=== PATIENT | male | born 1945 | race Caucasian/White ===

== ENCOUNTER 2022-06-30 10:52 | Outpatient (CLI) | payer MEDICARE, BC, SELFPAY ==
[2022-06-30 13:29] LABS: Chloride* 100 mmol/L (96-114); Potassium* 4.3 mmol/L (3.6-5.1); Sodium* 137 mmol/L (135-149)
[2022-06-30 13:32] LABS: Blood Urea Nitrogen* 15 mg/dL (7-30); Carbon Dioxide* 29 mmol/L (20-32); Cholesterol* 128 mg/dL (90-199); Creatinine* 0.9 mg/dL (0.5-1.5); Estimated Glomerular Filt Rate 89 ml/min; Glucose* 103 mg/dL (60-115)
[2022-06-30 13:33] LABS: Calcium* 9.6 mg/dL (8.4-10.6); HDL Cholesterol* 47 mg/dL (>=40); LDL Cholesterol Calculated 68 mg/dL (<100); Triglycerides* 65 mg/dL (40-149)
== END 2022-06-30 10:53 | disposition home or self-care (01) ==
PROVIDERS: PCP Internal Medicine; Visit Provider Internal Medicine
DX: E78.5 Hyperlipidemia, unspecified (principal); R73.03 Prediabetes
CPT/HCPCS: 80048; 80061

== ENCOUNTER 2022-10-21 09:15 | Outpatient (RCR) | payer MEDICARE, BC, SELFPAY ==
--- NOTE | 2022-08-18 18:47 | PT.OPEX ---
PT [place] Outpatient Eval PT [facility] Outpatient Eval Start: 08/18/22 12:16 Freq: Status: Active Protocol: Document 08/18/22 12:17 ENM (Rec: 08/18/22 14:35 ENM [id number]) E-signed By Neetu Stout DPT Physical Therapy Outpatient Evaluation Insurance Information Recert Due Date 11/10/22 Insurance Name Medicare B Medical Diagnosis other abnormalities of gait and mobility Treating Diagnosis impaired gait, decreased LE strength, impaired balance Referring MD Fitzgerald Subjective Subjective Patient presents to PT for balance impairments that have been present for years. He fell a couple of months ago when he wore a heavy backpack walking outside and notes that his hamstrings just got tired . He has fallen a few other times which he attributes to his dehydration or lack of electrolytes. His main form of activity is walking, uses hiking poles while performing. With getting out of bed or out of a chair patient starts off a little unstable. With darkness at night he notices more challenges with stability . Had been diagnosed with olivary degeneration, which spouse reports has improved some. Patient doesn't have to stairs much anymore but they were challenging to do in their old house. He does have a history of fainting with vasovagal episodes in the past . With standing for >5 mins he will feel faint, but it is better with walking. Patient denies lightheadedness and dizziness unless he is fatigued. Found to have executive function decline with testing. PMHx: History of previous TIA (12/23), ischemic stroke 2015, PFO Current Work Status Retired Precautions Treatment Precautions/Contraindications hx of vasovagal episodes Alyssa is the patients spouse Objective Other/Pertinent Objective ROM hip flexion, IR, ER WFL strength: knee extensors 4/5 B hip flexors L 4/5 R 4-/5 ankle DF 4/5 gait/balance: Patient ambulating with wide VIDYA, normal pace, even steps. Instability noted with lateral head turns during gait. No instability with vertical head turns, change in pace or quick stop 5x STS 16.44s, medium fatigue no arm use cues for getting fully upright normal VIDYA EO no sway normal VIDYA EC minimal sway narrow VIDYA EO minimal sway narrow VIDYA EC mild-mod sway while performing tandem stance able to hold 1- 2s before LOB, modified tandem mild way special tests: TUG 14.12s with wide VIDYA throughout Functional Test Performed & Score TUG 14.12s with wide VIDYA throughout 5x STS 16.44s, medium fatigue no arm use cues for getting fully upright Assessment Assessment/Impression Patient is a 76 year old male presenting with long history of balance impairments. He has had multiple falls in the past with the most difficulty with instability during ambulation, transitional movements like STS and navigating his environment at night. He has a history for strokes, vasovagal episodes, TIA, PFO and hypertrophic olivary degeneration. His main goal is to improve strength and balance Upon assessment patient displays impairments in balance with narrow VIDYA EC, tandem stance, TUG, and dynamic head turns during ambulation. Most notable gait impairment is wide VIDYA to maintain stability throughout gait cycle. 5x STS score of 16 .44s which is below age matched norms indicating decreased LE functional strength and endurance. Patient would greatly benefit from skilled PT to address impairments stated above in order to perform functional and recreational mobility with improved balance/stability and decrease risk for future falls. Primary Functional Limitations walking, stairs Plan of Care Rehabilitation Potential Good Physical Therapy Goals In 8-10 visits 1. Patient will be IND with HEP and self management of symptoms 2. Patient will be able to hold tandem stance 10s or more with minimal instability to demonstrate improvements in balance/stability 3. Patient will improve TUG scores from 14s to 13s or less to displays a decreased risk of falling 4. Patient will be able to walk in bedroom at night with reported minimal instability 4 /7 days of the week for improved safety with navigating home environment 5. Patient will improve 5x STS from 16s to 13s (MDC 3) to demonstrate improvements in LE functional strength and endurance Coordination/Communication With Referral Source Treatment Plan/Direct Interventions Gait Training,Joint Mobilization,Manual Therapy, Neuromuscular Re-ed,Self-Care/ Home Management,Therapeutic Activities,Therapeutic Exercises Frequency/Duration 1x a week for 8 weeks, as needed for 2-3 visits Patient Will Be Discharged From Therapy Completion of LTG(s), Independent w/HEP Evaluation Billing Untimed Code Treatment Minutes 30 Complexity Moderate Certification Information Initial Certification Date 08/18/22 Ending Certification Date 11/10/22 Provider Signature Shows Agreement With POC & Medical Necessity Physician Signature & Date Requested Please Sign/Date Here Physician Comment/Change : Physician NPI Number #
== END 2022-10-26 16:49 | disposition home or self-care (01) ==
PROVIDERS: PCP Internal Medicine; Visit Provider Internal Medicine
DX: R26.89 Other abnormalities of gait and mobility (principal); Z51.89 Encounter for other specified aftercare
CPT/HCPCS: 97110; 97112; 97162; 97530

== ENCOUNTER 2023-03-04 14:44 | Emergency (ER) | payer MEDICARE, BC, SELFPAY ==
[2023-03-04] VITALS (17 sets, daily range): BP systolic 118–150; BP diastolic 68–98; PULSE 40–76; RESP 16–18; TEMP 36.4–37.1; O2SAT 91–100; BMI 26.8
--- NOTE | 2023-03-04 16:15 | ED.GENADULT ---
HPI - General Adult General Time Seen by Provider: 16:15 Date Seen: 03/04/23 Chief complaint: Dizziness/Vertigo Stated complaint: Low heartrate yesterday, slightly short of breath Time Seen by Provider: 03/04/23 16:14 Source: patient, family, RN notes reviewed and old records reviewed Mode of arrival: ambulatory Limitations: no limitations History of Present Illness HPI narrative: 77-year-old male with history of CVA related to what sounds like a VSD or ASD which has since been repaired, presents today with exertion lightheadedness as well as low heart rate. Patient notes for the last week or so when he goes outside to do his usual walking he gets lightheaded. When he rests this gets better. He has no associated chest pain or increased shortness of breath. Today his what were innumerable low heart rate and so he came to the emergency department. Denies nausea, vomiting, diarrhea. Denies urinary symptoms. No lower extremity swelling. Related Data Home Medications Medication Instructions Recorded Confirmed aspirin 81 mg capsule 81 mg PO QDAY 06/30/22 10/27/22 coenzyme Q10 10 mg capsule (Co 10 mg PO ONCE 06/30/22 10/27/22 Q-10) multivitamin 2 tab PO QAM 06/30/22 10/27/22 triamcinolone acetonide 0.1 % 1 applic topical PRN 06/30/22 10/27/22 topical ointment cod liver oil 1 cap PO QDAY 09/01/22 10/27/22 Previous Rx's Medication Instructions Recorded gabapentin 300 mg capsule 300 mg PO QHS #90 caps 08/03/22 atorvastatin 20 mg tablet 10 mg (1/2 x 20 mg) PO QDAY #45 02/02/23 tabs Allergies Allergy/AdvReac Type Severity Reaction Status Date / Time omeprazole Allergy Unknown Rash Verified 03/04/23 14:59 Penicillins Allergy Unknown Rash Verified 03/04/23 14:59 Review of Systems Status of ROS: Reports: 10 or more systems reviewed and unremarkable except as noted in History and below [facility] Surgical History (Updated 10/27/22 @ 10:40 by Sarah Fitzgerald MD) History of squamous cell carcinoma ?Z85.89 - Personal history of malignant neoplasm of other organs and systems (ICD-10) History of tonsillectomy and adenoidectomy ?Z90.89 - Acquired absence of other organs (ICD-10) History of mandibular surgery (2015) ?Z98.890 - Other specified postprocedural states (ICD-10) History of amputation of finger ?Z89.029 - Acquired absence of unspecified finger(s) (ICD-10) History of phacoemulsification of cataract of both eyes with intraocular lens implantation ?Z98.41 - Cataract extraction status, right eye (ICD-10) ?Z98.42 - Cataract extraction status, left eye (ICD-10) ?Z96.1 - Presence of intraocular lens (ICD-10) History of inguinal hernia repair ?Z98.890 - Other specified postprocedural states (ICD-10) ?Z87.19 - Personal history of other diseases of the digestive system (ICD-10) History of ventral hernia repair (2018) ?Z98.890 - Other specified postprocedural states (ICD-10) ?Z87.19 - Personal history of other diseases of the digestive system (ICD-10) PFO (patent foramen ovale) (2014) ?Q21.12 - Patent foramen ovale (ICD-10) Family History (Updated 06/26/22 @ 15:39 by Jael El) Mother Coronary artery disease High blood pressure Stroke Father Leukemia Lung cancer Sister Depression Liver disease Family history of breast cancer High blood pressure Brother Asthma Coronary artery disease Maternal Grandmother Diabetes Paternal Grandmother Diabetes Uncle Coronary artery disease Social History Smoking Status: Never smoker Do you use any of these nicotine containing products: None Second hand tobacco smoke exposure: No How often do you have a drink containing alcohol: never AUDIT-C Alcohol total score: 0 Non-prescribed substance use: denies use Little interest or pleasure in doing things: not at all Feeling down, depressed, or hopeless: not at all Exam Narrative: Exam Narrative: General: Well-developed and well-nourished, no acute distress Head: Atraumatic and normocephalic Eyes: Pupils are equal reactive, extraocular motions intact, conjunctiva clear ENT: External nose and ears are normal, posterior pharynx without erythema or exudate Neck: No midline cervical tenderness, full spontaneous range of motion the neck, trachea midline, no adenopathy Heart: Regular rate and rhythm no murmurs or thrills Lungs: Clear to auscultation bilaterally without wheezes or crackles Abdomen: Soft, nontender, nondistended with active bowel sounds Musculoskeletal: No tenderness, deformity, or edema Neurologic: Awake, alert, and oriented x3, no gross focal neurologic deficits, cranial nerves intact as tested Psych: Mood and affect are appropriate Skin: No rashes Const: Vital Signs, click to edit/add: Vital Signs - 24 hr 03/04/23 15:00 03/04/23 16:43 03/04/23 16:46 Temperature 98.8 F Pulse Rate 42 L 40 L Pulse Rate [Left P ulse Oximeter] 54 L Respiratory Rate 16 Blood Pressure 131/73 Blood Pressure [Ri ght Upper Arm] 122/75 Pulse Oximetry 94 94 91 Oxygen Delivery Me thod Room Air 03/04/23 16:47 03/04/23 17:00 03/04/23 17:02 Temperature Pulse Rate 40 L 42 L Pulse Rate [Left P ulse Oximeter] Respiratory Rate Blood Pressure 123/71 Blood Pressure [Ri ght Upper Arm] Pulse Oximetry 94 93 94 Oxygen Delivery Me thod 03/04/23 17:16 03/04/23 17:30 03/04/23 17:32 Temperature Pulse Rate 51 L 40 L Pulse Rate [Left P ulse Oximeter] Respiratory Rate Blood Pressure 118/68 131/92 H Blood Pressure [Ri ght Upper Arm] Pulse Oximetry 93 93 94 Oxygen Delivery Me thod 03/04/23 17:47 03/04/23 18:00 03/04/23 18:02 Temperature Pulse Rate 55 L 42 L 45 L Pulse Rate [Left P ulse Oximeter] Respiratory Rate Blood Pressure 142/98 H 150/81 H Blood Pressure [Ri ght Upper Arm] Pulse Oximetry 95 94 95 Oxygen Delivery Me thod Course Course Hospital Course: Patient seen examined, prior records reviewed. Patient presents today with exertion lightheadedness and his watched 80 had a low heart rate. Did review the health chanel from patient's watch, heart rate down to 38 today but has also had prior heart rates in the low 40s over the last couple of months. He says that his low heart rate that was recorded was not associated with activity or lightheadedness. Labs ordered, if labs are reassuring and telemetry monitoring in the emergency department does not show any dysrhythmia, patient is stable for discharge but would benefit from having Zio patch done. Reevaluation(s) Time of Reevaluation #1: 17:33 Reevaluation #1: Labs independently interpreted by me with normal CBC, reassuring basic panel, normal magnesium, negative troponin. BNP 1510. I reviewed telemetry strips in the emergency department today which show predominant pattern of bigeminy with a rate of 86, occasional sinus in the 70s. Concerned that this bigeminal rhythm may be giving patient episodes of lightheadedness with activity and that he may need further evaluation and consideration for pacemaker. Will discuss with cardiology, [facility] contacted. Time of Reevaluation #2: 17:52 Reevaluation #2: Care discussed with cardiology ([facility]) recommends transfer for EP evaluation and monitoring. Updated patient with diagnosis and plan. He had his prior PFO repair at [place] and I did call them but they have no beds available on full divert. Vital Signs Vital signs: Initial Vital Signs Temperature 98.8 F 03/04/23 15:00 Temperature Source Temporal Artery Scan 03/04/23 15:00 Pulse Rate 54 L 03/04/23 15:00 Pulse Rhythm Regular 03/04/23 15:00 Pulse Strength 3+ Normal 03/04/23 15:00 Respiratory Rate 16 03/04/23 15:00 Blood Pressure 122/75 03/04/23 15:00 Blood Pressure Mean 90 03/04/23 15:00 Blood Pressure Position Sitting 03/04/23 15:00 Pulse Oximetry 94 03/04/23 15:00 Oxygen Delivery Method Room Air 03/04/23 15:00 Vital Signs Temperature 98.8 F 03/04/23 15:00 Pulse Rate 54 L 03/04/23 15:00 Respiratory Rate 16 03/04/23 15:00 Blood Pressure 122/75 03/04/23 15:00 Pulse Oximetry 94 03/04/23 15:00 Oxygen Delivery Method Room Air 03/04/23 15:00 Temperature 98.8 F 03/04/23 15:00 Pulse Rate 45 L 03/04/23 18:02 Respiratory Rate 16 03/04/23 15:00 Blood Pressure 150/81 H 03/04/23 18:02 Pulse Oximetry 95 03/04/23 18:02 Oxygen Delivery Method Room Air 03/04/23 15:00 Medical Decision Making Medical Records Medical records reviewed: Yes I reviewed the patient's medical records Lab Data Lab results reviewed: Yes I reviewed the patient's lab results Labs: Lab Results 03/04/23 03/04/23 Range/Units 16:26 16:42 WBC 7.17 (4.50-11.00) K/uL RBC 4.71 (4.30-5.90) m/uL Hgb 14.9 (13.5-17.5) gm/dL Hct 44.8 (37.0-53.0) % MCV 95 (80-100) fL MCH 32 (26-34) pg MCHC 33 (32-36) gm/dL RDW Coeff of Evelina 12.8 (11.5-15.5) % Plt Count 148 (140-440) K/uL Neut % (Auto) 56.6 (42.0-72.0) % Lymph % (Auto) 31.8 (20-44) % [place] % (Auto) 8.8 (0.0-11.0) % Eos % (Auto) 1.8 (0.0-7.0) % Baso % (Auto) 0.7 (0.0-3.0) % Neut # (Auto) 4.06 (1.7-7.0) K/uL Lymph # (Auto) 2.28 (0.90-2.90) K/uL [place] # (Auto) 0.60 (0.00-0.90) K/UL Eos # (Auto) 0.13 (0.00-0.50) K/uL Baso # (Auto) 0.05 (0.00-0.30) K/uL Sodium 134 L (135-149) mmol/L Potassium 3.6 (3.6-5.1) mmol/L Chloride 100 (96-114) mmol/L Carbon Dioxide 29 (20-32) mmol/L BUN 19 (7-30) mg/dL Creatinine 1.2 (0.5-1.5) mg/dL Estimated Creat Clear 51.55 Estimated GFR 62 ml/min Glucose 87 (60-115) mg/dL Calcium 8.9 (8.4-10.6) mg/dL Magnesium 2.1 (1.5-2.6) mg/dL NT-Pro-B Natriuret Pep 1560 pg/mL Urine Color Yellow (Yellow) Urine Appearance Clear (Clear) Urine pH 5.5 (5.0-8.5) Ur Specific [place] <= 1.005 (1.000-1.030) Urine Protein Negative (Negative) Urine Glucose (UA) Negative (Negative) Urine Ketones Negative (Negative) Urine Blood Trace-intact A (Negative) Urine Nitrite Negative (Negative) Urine Bilirubin Negative (Negative) Urine Urobilinogen 0.2 (0.2-1.0) Ur Leukocyte Esterase Negative (Negative) Urine RBC 0-2 (0-2) Urine WBC 0-2 (0-5) Ur Squamous Epith Cells Few (None-Few) Urine Bacteria None (None) POC Troponin I 0.00 L (0.01-0.04) ng/ml ECG Data Attestation: I personally reviewed and interpreted this ECG as follows: Prior ECG tracings: not available for review Interpretation: Performed at 3:34 p.m. demonstrates sinus rhythm with frequent PVCs in a bigeminal pattern, nonspecific ST changes, normal axis, QTC 435. No prior for comparison. Discharge Plan Discharge Clinical Impression: Bigeminal rhythm, Near syncope Patient Disposition: Xfer [facility] Discharge Location: [facility] Condition: Stable Prescriptions: No Action triamcinolone acetonide 0.1 % ointment 1 applic topical PRN Patient Comments: APPLY TO ECZEMA TWO TIMES A DAY NEEDED coenzyme Q10 [Co Q-10] 10 mg capsule 10 mg PO ONCE multivitamin Tablet 2 tab PO QAM aspirin 81 mg capsule 81 mg PO QDAY gabapentin 300 mg capsule 300 mg PO QHS Qty: 90 3RF cod liver oil Capsule 1 cap PO QDAY atorvastatin 20 mg tablet 10 mg PO QDAY Qty: 45 1RF Stand Alone Forms: MyHealth Info Instructions
--- NOTE | 2023-03-04 16:19 | CRLHL7_ITS ---
For Patients: As a result of the Century Cures Act, medical imaging exams and procedure reports are released immediately into your electronic medical record. You may view this report before your referring provider. If you have questions, please contact your health care provider. Indication: Palpitations Technique: Chest 1 view Comparison: None Findings/Impression: Cardiovascular and mediastinum: Borderline heart size with mild aortic tortuosity. Lungs and pleural space: Lungs are clear. No sign of infiltrate or mass. No sign of pleural effusion. No pneumothorax. Bones and soft tissues: No acute findings. Dictated by Armaan Jenkins MD @ 03/04/2023 5:24:47 PM (Electronically Signed)
[2023-03-04 16:35] LABS: Appearance Urine Clear (Clear); Bilirubin Urine Negative (Negative); Blood Urine Trace-intact (Negative); Color Urine Yellow (Yellow); Glucose Urine Negative (Negative); Ketones Urine Negative (Negative); Leukocyte Esterase Urine Negative (Negative); Nitrite Urine Negative (Negative); Protein Urine Negative (Negative); Specific Gravity Urine <= 1.005 (1.000-1.030); Urobilinogen Urine 0.2 (0.2-1.0); pH Urine 5.5 (5.0-8.5)
[2023-03-04] MEDS: 0.9 % SODIUM CHLORIDE 1000 ml 1,000 ML IV (16:45)
[2023-03-04 16:47] LABS: Basophils Absolute Auto 0.05 K/uL (0.00-0.30); Basophils Percent Auto 0.7 % (0.0-3.0); Eosinophils Absolute Auto 0.13 K/uL (0.00-0.50); Eosinophils Percent Auto 1.8 % (0.0-7.0); Hematocrit 44.8 % (37.0-53.0); Hemoglobin* 14.9 gm/dL (13.5-17.5); Immature Granulocytes Abs Auto 0.02 K/uL (0.00-0.30); Immature Granulocytes Pct Auto 0.3 %; Lymphocytes Absolute Auto 2.28 K/uL (0.90-2.90); Lymphocytes Percent Auto 31.8 % (20-44); Mean Corpuscular HGB Conc 33 gm/dL (32-36); Mean Corpuscular Hemoglobin 32 pg (26-34); Mean Corpuscular Volume 95 fL (80-100); Monocytes Percent Auto 8.8 % (0.0-11.0); Neutrophils Absolute Auto 4.06 K/uL (1.7-7.0); Neutrophils Percent Auto 56.6 % (42.0-72.0); Platelet Count* 148 K/uL (140-440); RDW Coefficient of Variation % 12.8 % (11.5-15.5); Red Blood Count 4.71 m/uL (4.30-5.90); Slide Review Reflex No; White Blood Count* 7.17 K/uL (4.50-11.00)
[2023-03-04 16:56] LABS: RBC Urine 0-2 (0-2); Squamous Epithelial Cell Urine Few (None-Few); WBC Urine 0-2 (0-5)
[2023-03-04 16:58] LABS: Chloride* 100 mmol/L (96-114)
[2023-03-04 16:59] LABS: Potassium* 3.6 mmol/L (3.6-5.1); Sodium* 134 mmol/L (135-149)
[2023-03-04 17:01] LABS: Creatinine* 1.2 mg/dL (0.5-1.5); Est. Creatinine Clearance* 51.55; Estimated Glomerular Filt Rate 62 ml/min
[2023-03-04 17:02] LABS: Blood Urea Nitrogen* 19 mg/dL (7-30); Calcium* 8.9 mg/dL (8.4-10.6); Carbon Dioxide* 29 mmol/L (20-32); Glucose* 87 mg/dL (60-115); Magnesium* 2.1 mg/dL (1.5-2.6)
[2023-03-04 17:16] LABS: NT Pro B Type NatriureticPept* 1560 pg/mL
--- NOTE | 2023-03-04 19:38 | ED.NURSE ---
Rounded on patient. He reports feeling well. He is playing cards with his at bedside. Denies lightheadedness or dizziness currently. Will continue to monitor.
--- NOTE | 2023-03-04 20:36 | ED.NURSE ---
Report to MARYAM Maria at [facility] [place]. Patient going to room H5082. Ok to call for transport. Call [phone] once patient has left.
--- NOTE | 2023-03-04 20:49 | ED.NURSE ---
Transport called. ETA for transport 20-25 minutes.
--- NOTE | 2023-03-04 21:15 | ED.NURSE ---
Patient transport to [facility]. Patient sent with PCS form, face sheet, transfer consent, ED transfer report, MD note, EKG and imaging results. IV left in place for transport. [facility] updated with transport.
== END 2023-03-04 21:23 | disposition short-term general hospital (02) ==
PROVIDERS: Emergency Provider Family Medicine; PCP Internal Medicine
DX: R00.8 Other abnormalities of heart beat (principal); R55 Syncope and collapse
CPT/HCPCS: 36415; 71045; 80048; 81001; 83735; 83880; 84484; 85025; 93005; 96360; 99285; J7030

== ENCOUNTER 2023-03-04 21:12 | Outpatient (CLI) | payer MEDICARE, BC, SELFPAY | END 2023-03-04 21:13 | disposition home or self-care (01) | LOC: AMB 03-05 07:33 | PROVIDERS: PCP Internal Medicine; Visit Provider Family Medicine | DX: I49.9 Cardiac arrhythmia, unspecified (principal) | CPT/HCPCS: A0425; A0428 ==

== ENCOUNTER 2023-04-02 09:46 | Outpatient (CLI) | payer MEDICARE, BC, SELFPAY | END 2023-04-02 09:47 | disposition home or self-care (01) | LOC: RAD 09:46 | PROVIDERS: PCP Internal Medicine; Visit Provider Internal Medicine | DX: R07.89 Other chest pain (principal); I49.8 Other specified cardiac arrhythmias; I51.7 Cardiomegaly; I07.1 Rheumatic tricuspid insufficiency | CPT/HCPCS: 93306 ==

== ENCOUNTER 2023-04-29 08:44 | Outpatient (CLI) | payer MEDICARE, BC, SELFPAY ==
[2023-04-29 11:15] VITALS: BP 164/92; PULSE 79; RESP 18
--- NOTE | 2023-04-29 15:27 | W.PM.STED ---
Stress Test Note Date Date of test: 04/29/23 Providers Primary care provider: Sarah Fitzgerald Stress test physician: Sen Diop Stress Test Note Stress test ordered: Stress Myoview Indication for test: Chest pain and acute ischemic changes Stress test medicine: None Results discussion: Patient is a very nice gentleman who presents for the above test after discussion the risks benefits and side effects he would like to proceed, cardiac stress test medical history form is reviewed pretest EKG shows normal sinus rhythm, with mild bradycardia, which appears to be sinus. Ventricular rate was 47 blood pressure 1 20-174. Standard Jesse protocol is employed over a time course 6 minutes 14 seconds achieved a metabolic equivalent of 7.5 Mets with a maximum heart rate of 146 which is 119% of the maximum. During this test he had occasional PVCs, but there is no significant dysrhythmias. There is no ST wave changes suggestive of ischemia, he recovered normally. Conditioning was felt to be good Impression: Negative electrographic portion of stress Myoview Follow up suggested: Await nuclear images he will be read by Cardiology and nuclear Medicine, clinical correlation with these will be needed, patient left this testing facility in excellent condition. No complication
== END 2023-04-29 11:17 | disposition home or self-care (01) ==
LOC: STRESS 08:45
PROVIDERS: PCP Internal Medicine; Visit Provider Family Medicine
DX: I24.8 Other forms of acute ischemic heart disease (principal); R07.89 Other chest pain
CPT/HCPCS: 78452; 93016; 93017; A9500

== ENCOUNTER 2023-07-12 08:05 | Outpatient (CLI) | payer MEDICARE, BC, SELFPAY | END 2023-07-12 08:06 | disposition home or self-care (01) | LOC: NFLDREF 07-14 18:16 | PROVIDERS: PCP Internal Medicine; Referring Provider Internal Medicine; Visit Provider Internal Medicine | DX: R73.03 Prediabetes (principal); E78.5 Hyperlipidemia, unspecified; Z86.79 Personal history of other diseases of the circulatory system | CPT/HCPCS: 80048; 80061 ==

== ENCOUNTER 2024-01-29 09:51 | Outpatient (CLI) | payer MEDICARE, BC, SELFPAY ==
--- OUTSIDE RECORDS SUMMARY | 2024-02-02 12:03 | XMS_ITS | Clinical Summary ---
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 Recommended avoidance of noxious stimuli which have included alcohol, ear washing, and pain. Bradyarrhythmia 03/04/2023 03/05/2023 Word finding difficulty 12/31/202002/12 Overview: Episodic x 2 for 2 hours Encounters Date Type Department Care Team Description 01/24/2024 2:30 PM CDT Office Visit [facility] [address] [place] [address] Herlinda Max AuD Hearing Aid (BLANCO consult) 01/24/2024 Travel 01/10/2024 Telephone [facility] [address] [place] [address] Herlinda Max AuD 11/18/2023 9:30 AM BACKUP ADMINISTRATOR Office Visit [facility] [address] [place] [address] Elodia Santiago PA Recheck (Wax removal) 11/18/2023 [...] Description 02/14/2024 2:30 PM CDT Office Visit [facility] [address] [place] [address] [place], AuD [address] [place] [address] 02/28/2024 2:30 PM CDT Office Visit [facility] [address] [place] [address] Winter Herlinda, AuD [address] [place] [address] 03/23/2024 10:30 AM CDT Office Visit [facility] [address] [place] [address] Pennie Cunningham MD [address] [place] [address] Health Maintenance Due Date Last Done Comments [...] Code Status Discussion: Reviewed Preferences Care Teams Auto Dealership Porter Relationship Specialty Start Date End Date Sarah Fitzgerald MD [address] [place] [address] PCP - General Internal Medicine 03/05/23
== END 2024-01-29 09:52 | disposition home or self-care (01) ==
LOC: AMB 02-02 12:01
PROVIDERS: PCP Internal Medicine; Visit Provider Emergency Medicine Emergency Medical Services
DX: R55 Syncope and collapse (principal)
CPT/HCPCS: A0425; A0427

== ENCOUNTER 2024-01-29 10:32 | Emergency (ER) | payer MEDICARE, BC, SELFPAY ==
[2024-01-29] VITALS (12 sets, daily range): BP systolic 106–124; BP diastolic 71–88; PULSE 45–61; RESP 18; TEMP 36.6; O2SAT 92–96; BMI 28.1
--- NOTE | 2024-01-29 10:51 | ED.SYNCOPE ---
HPI - Syncope General Chief Complaint: Syncope/Fainted Stated Complaint: Syncope Time Seen by Provider: 01/29/24 10:54 History of Present Illness HPI narrative: This 78-year-old male comes in because of loss of consciousness. He was out looking at some plants in a standing position when he began to feel lightheaded. He was assisted to the ground and did have brief loss of consciousness. Does not report any pain and now feels back to normal. He does take metoprolol succinate 50 mg daily. This medicine was started last summer as he was having some premature beats. He saw food service representative a few months ago who stated that he could stop that medicine if needed or he would be okay to continue it. He arrives here with bradycardia and heart rate around 48 beats per minute. Ambulance personnel state that they measured a heart rate at 28 beats per minute when they arrived. The patient does not report any chest pain. Related Data Home Medications Medication Instructions Recorded Confirmed aspirin 81 mg capsule 81 mg PO QDAY 06/30/22 01/05/24 coenzyme Q10 10 mg capsule (Co 10 mg PO ONCE 06/30/22 01/05/24 Q-10) multivitamin 2 tab PO QAM 06/30/22 01/05/24 metoprolol succinate 50 mg 50 mg PO QDAY 03/09/23 01/05/24 tablet,extended release 24 hr cod liver oil 1 cap PO QDAY PRN 07/15/23 01/05/24 Previous Rx's Medication Instructions Recorded atorvastatin 10 mg tablet 10 mg PO DAILY #90 tabs 07/15/23 gabapentin 300 mg capsule 300 mg PO QHS #90 caps 11/17/23 metoprolol succinate 25 mg 25 mg PO DAILY #30 tabs 01/29/24 tablet,extended release 24 hr Allergies Allergy/AdvReac Type Severity Reaction Status Date / Time omeprazole Allergy Unknown Rash Verified 01/05/24 13:38 Penicillins Allergy Unknown Rash Verified 01/05/24 13:38 Review of Systems Status of ROS: Reports: 10 or more systems reviewed and unremarkable except as noted in History and below Narrative: Constitutional: No fevers, no weight gain or loss. Eyes: No discharge. No vision changes. HENT: No congestion, no sore throat, no ear pain. Cardiovascular: No chest pain, no palpitations. Respiratory: No shortness of breath, no wheezes, no cough. Gastrointestinal: No abdominal pain, no vomiting, no diarrhea. Genitourinary: No dysuria, no hematuria. Musculoskeletal: Normal range of motion. Skin: No rashes, no pruritis. Neurological: No weakness, sensory change, speech change. Endo/Heme/Allergies: No bruising or bleeding. No polydipsia. Pysch: no suicidality, no anxiety, no insomnia. All other systems reviewed and are negative. [facility] Surgical History (Updated 10/27/22 @ 10:40 by Sarah Fitzgerald MD) History of squamous cell carcinoma ?Z85.89 - Personal history of malignant neoplasm of other organs and systems (ICD-10) History of tonsillectomy and adenoidectomy ?Z90.89 - Acquired absence of other organs (ICD-10) History of mandibular surgery (2014) ?Z98.890 - Other specified postprocedural states (ICD-10) History of amputation of finger ?Z89.029 - Acquired absence of unspecified finger(s) (ICD-10) History of phacoemulsification of cataract of both eyes with intraocular lens implantation ?Z98.41 - Cataract extraction status, right eye (ICD-10) ?Z98.42 - Cataract extraction status, left eye (ICD-10) ?Z96.1 - Presence of intraocular lens (ICD-10) History of inguinal hernia repair ?Z98.890 - Other specified postprocedural states (ICD-10) ?Z87.19 - Personal history of other diseases of the digestive system (ICD-10) History of ventral hernia repair (2018) ?Z98.890 - Other specified postprocedural states (ICD-10) ?Z87.19 - Personal history of other diseases of the digestive system (ICD-10) PFO (patent foramen ovale) (2014) ?Q21.12 - Patent foramen ovale (ICD-10) Family History (Updated 06/26/22 @ 15:39 by Jael lE) Mother Coronary artery disease High blood pressure Stroke Father Leukemia Lung cancer Sister Depression Liver disease Family history of breast cancer High blood pressure Brother Asthma Coronary artery disease Maternal Grandmother Diabetes Paternal Grandmother Diabetes Uncle Coronary artery disease Social History Smoking Status: Never smoker Do you use any of these nicotine containing products: None Second hand tobacco smoke exposure: No How often do you have a drink containing alcohol: never AUDIT-C Alcohol total score: 0 Non-prescribed substance use: denies use Little interest or pleasure in doing things: nearly every day Feeling down, depressed, or hopeless: not at all Exam Narrative: Exam Narrative: Constitutional: Well-developed, well-nourished, no acute distress. HEENT: Normocephalic, atraumatic. Neck: Normal range of motion. Nontender. Supple. Heart: Regular. No murmurs. Bradycardia. Intact distal pulses. Lungs: Clear to auscultation. No chest discomfort. No wheezes, rhonchi, or rales. Abdomen: Normal bowel sounds. Nontender. No rebound tenderness. Genitalia: Deferred. Back: No midline tenderness. Normal range of motion. Extremities: Normal range of motion. No injury. Skin: Intact. No rash. Warm. No erythema or pallor. Neurologic: No altered sensation. No weakness. Alert and oriented. Psychiatric: No suicidality. No anxiety or depression. No insomnia. Nursing notes and vitals signs are reviewed. Const: Vital Signs, click to edit/add: Vital Signs - 24 hr 01/29/24 10:39 01/29/24 10:45 01/29/24 10:58 Temperature 97.8 F Pulse Rate 49 L Pulse Rate [Right Pulse Oximeter] 49 L Pulse Rate [orthos tatic lying] 45 L Pulse Rate [orthos tatic sitting] 46 L Pulse Rate [orthos tatic standing] 55 L Respiratory Rate 18 Blood Pressure Blood Pressure [Ri ght Upper Arm] 119/82 Blood Pressure [or thostatic lying] 106/71 Blood Pressure [or thostatic sitting] 115/82 Blood Pressure [or thostatic standing ] 117/80 Pulse Oximetry 92 96 Oxygen Delivery Me thod Room Air 01/29/24 11:00 01/29/24 11:01 01/29/24 11:03 Temperature Pulse Rate 46 L 53 L 57 L Pulse Rate [Right Pulse Oximeter] Pulse Rate [orthos tatic lying] Pulse Rate [orthos tatic sitting] Pulse Rate [orthos tatic standing] Respiratory Rate Blood Pressure 106/71 115/82 Blood Pressure [Ri ght Upper Arm] Blood Pressure [or thostatic lying] Blood Pressure [or thostatic sitting] Blood Pressure [or thostatic standing ] Pulse Oximetry 94 92 94 Oxygen Delivery Me thod 01/29/24 11:04 01/29/24 11:15 01/29/24 11:30 Temperature Pulse Rate 50 L 45 L 53 L Pulse Rate [Right Pulse Oximeter] Pulse Rate [orthos tatic lying] Pulse Rate [orthos tatic sitting] Pulse Rate [orthos tatic standing] Respiratory Rate Blood Pressure 117/80 Blood Pressure [Ri ght Upper Arm] Blood Pressure [or thostatic lying] Blood Pressure [or thostatic sitting] Blood Pressure [or thostatic standing ] Pulse Oximetry 95 94 96 Oxygen Delivery Il thod 01/29/24 11:32 Temperature Pulse Rate 61 Pulse Rate [Right Pulse Oximeter] Pulse Rate [orthos tatic lying] Pulse Rate [orthos tatic sitting] Pulse Rate [orthos tatic standing] Respiratory Rate Blood Pressure 124/88 Blood Pressure [Ri ght Upper Arm] Blood Pressure [or thostatic lying] Blood Pressure [or thostatic sitting] Blood Pressure [or thostatic standing ] Pulse Oximetry 96 Oxygen Delivery Me thod Course Vital Signs Vital signs: Initial Vital Signs Temperature 97.8 F 01/29/24 10:39 Temperature Source Temporal Artery Scan 01/29/24 10:39 Pulse Rate 49 L 01/29/24 10:39 Respiratory Rate 18 01/29/24 10:39 Blood Pressure 119/82 01/29/24 10:39 Blood Pressure Mean 94 01/29/24 10:39 Blood Pressure Position Sitting 01/29/24 10:39 Pulse Oximetry 92 01/29/24 10:39 Oxygen Delivery Method Room Air 01/29/24 10:39 Vital Signs Temperature 97.8 F 01/29/24 10:39 Pulse Rate 49 L 01/29/24 10:39 Respiratory Rate 18 01/29/24 10:39 Blood Pressure 119/82 01/29/24 10:39 Pulse Oximetry 92 01/29/24 10:39 Oxygen Delivery Method Room Air 01/29/24 10:39 Temperature 97.8 F 01/29/24 10:39 Pulse Rate 61 01/29/24 11:32 Respiratory Rate 18 01/29/24 10:39 Blood Pressure 124/88 01/29/24 11:32 Pulse Oximetry 96 01/29/24 11:32 Oxygen Delivery Method Room Air 01/29/24 10:39 MDM - Syncope MDM Narrative Medical decision making narrative: This patient comes in for evaluation after a syncopal event that occurred prior to arrival. Ambulance came and noted bradycardia which has now resolved back to what is likely his baseline at around 50 beats per minute. He is on metoprolol succinate 50 mg daily. He continues to feel normal here and was able to get up to the bathroom without any symptoms. Additionally orthostatic blood pressures were measured and these results were within normal limits. The patient did have some premature beats from premature atrial contractions observed on the monitor. Labs returned with reassuring findings as does his EKG. The patient states that he saw his food service representative a few months ago who indicated that he could discontinue the metoprolol if desired. The patient states that he has been cutting the tablet in half. He is prescribed metoprolol succinate 50 mg daily. It seems that he may not need any medication or as he is cutting the tablet for an extended release tablet it may be releasing a larger dose initially and probably contributing to some of his symptoms today. I advised the patient to discontinue the metoprolol altogether however he does have occasional and sometimes frequent premature beats so he may benefit from a lower dose. I did provide a prescription for metoprolol succinate 25 mg tablets that he can use if he is having symptoms. I advised him to follow-up with his primary physician for ongoing management. Lab Data Labs: Lab Results 01/29/24 01/29/24 Range/Units 10:43 10:51 WBC 8.14 (4.50-11.00) K/uL RBC 4.84 (4.30-5.90) m/uL Hgb 15.3 (13.5-17.5) gm/dL Hct 46.8 (37.0-53.0) % MCV 97 (80-100) fL MCH 32 (26-34) pg MCHC 33 (32-36) gm/dL RDW Coeff of Evelina 12.9 (11.5-15.5) % Plt Count 133 L (140-440) K/uL Neut % (Auto) 52.1 (42.0-72.0) % Lymph % (Auto) 36.5 (20-44) % [place] % (Auto) 9.1 (0.0-11.0) % Eos % (Auto) 1.5 (0.0-7.0) % Baso % (Auto) 0.6 (0.0-3.0) % Neut # (Auto) 4.24 (1.7-7.0) K/uL Lymph # (Auto) 2.97 H (0.90-2.90) K/uL [place] # (Auto) 0.70 (0.00-0.90) K/UL Eos # (Auto) 0.12 (0.00-0.50) K/uL Baso # (Auto) 0.05 (0.00-0.30) K/uL Abs Immat Gran (auto) 0.02 (0.00-0.30) K/uL Imm/Tot Granulo (auto) 0.2 % Sodium 138 (135-149) mmol/L Potassium 4.1 (3.6-5.1) mmol/L Chloride 106 (96-114) mmol/L Carbon Dioxide 25 (20-32) mmol/L Anion Gap 7 (7-15) mEq/L BUN 20 (7-30) mg/dL Creatinine 1.2 (0.5-1.5) mg/dL Estimated Creat Clear 50.73 Estimated GFR 62 ml/min Glucose 113 (60-115) mg/dL Calcium 8.8 (8.4-10.6) mg/dL POC Troponin I 0.01 (0.01-0.04) ng/ml ECG Data Attestation: I personally reviewed and interpreted this ECG as follows: Interpretation: Sinus bradycardia. Rate is 49 beats per minute. There are no specific ST or T-wave abnormalities. Discharge Plan Discharge Clinical Impression: Bradycardia, Syncope Patient Disposition: Home, Self-Care Condition: Improved Additional Instructions: Discontinue metoprolol and re-evaluate how your feeling and if possible measure heart rate and blood pressure for follow-up appointment with primary physician. If premature beats are happening rather frequently restart metoprolol succinate 25 mg daily. Return to emergency department if worsening. Prescriptions: New metoprolol succinate 25 mg tablet extended release 24 hr 25 mg PO DAILY Qty: 30 0RF No Action coenzyme Q10 [Co Q-10] 10 mg capsule 10 mg PO ONCE multivitamin Tablet 2 tab PO QAM aspirin 81 mg capsule 81 mg PO QDAY metoprolol succinate 50 mg tablet extended release 24 hr 50 mg PO QDAY atorvastatin 10 mg tablet 10 mg PO DAILY Qty: 90 3RF cod liver oil Capsule 1 cap PO QDAY PRN gabapentin 300 mg capsule 300 mg PO QHS Qty: 90 2RF Follow Up/Referrals: Sarah Fitzgerald MD [Primary Care Provider] - Stand Alone Forms: [facility] Info Instructions
[2024-01-29 10:58] LABS: Troponin, Point-of-Care* 0.01 ng/ml (0.01-0.04)
--- OUTSIDE RECORDS SUMMARY | 2024-01-29 10:58 | XMS_ITS | Clinical Summary ---
Author Name Unknown Organization [email or web address] [facility] [employer] [facility] Address [place], [place] [address] Care Team Providers Care Poultry Boner Name Role Phone Sarah Fitzgerald MD Primary Care Provider [phone]- [phone] Allergies Active Allergy Reactions Criticality Noted Date Comments Omeprazole Rash Medium 09/04/2021 Penicillins Rash 04/27/2013 Medications Medication Sig Dispensed Refills Start Date End Date Status ubidecarenone (COQ-10 ORAL) Take 1 Capsule by mouth once daily. Active multivitamin therapeutic (THERAGRAN; ONCOVITE) tablet Take 1 Tablet by mouth once daily. Active gabapentin (NEURONTIN) 300 mg capsule Take 300 mg by mouth at bedtime. 05/04/2022 Active aspirin chewable 81 mg chewable tablet Chew 81 mg by mouth once daily with a meal. Active atorvastatin (LIPITOR) 10 mg tablet Take 10 mg by mouth at bedtime. Active cod liver oiL oil Take 5 mL by mouth once daily. Active polyethylene glycoL (Miralax) 17 gram/scoop powder Mix 1 scoop in liquid then take by mouth once daily if needed for Constipation. Active metoprolol succinate (TOPROL XL) 50 mg sustained-release tabletIndications:PVC (premature ventricular contraction) Take 1 Tablet (50 mg) by mouth once daily. 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 Mostly with concerns of executive functioning. Will follow up in 1 year. 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 Recommended avoidance of noxious stimuli which have included alcohol, ear washing, and pain. Bradyarrhythmia 03/04/2023 03/05/2023 Word finding difficulty 12/31/202002/12 Overview: Episodic x 2 for 2 hours Encounters Date Type Department Care Team Description 01/24/2024 2:30 PM CDT Office Visit [facility] [address] [place] [address] Herlinda Max AuD Hearing Aid (BLANCO consult) 01/24/2024 Travel 01/10/2024 Telephone [facility] [address] [place] [address] Herlinda Max AuD 11/18/2023 9:30 AM BOTTOM SCRUBBER Office Visit [facility] [address] [place] [address] Elodia Santiago PA Recheck (Wax removal) 11/18/2023 Travel from Last 3 Months Social History Tobacco Use Types Packs/Day Years Used Date Smoking Tobacco: Never Smokeless Tobacco: Never Alcohol Use Standard Drinks/Week Comments Yes 1 (1 standard drink = 0.6 oz pure alcohol) Less than a glass of wine once per week Social Connections Answer Date Recorded Frequency of Communication with Friends and Fami ly Not on file 07/15/2022 Sex and Gender Information Value Date Recorded Sex Assigned at Not on file Gender Identity Not on file Sexual Orientation Not on file Obstetrics History Last Filed Vital Signs Vital Sign Reading Time Taken Comments Blood Pressure 118/76 07/01/2023 9:27 AM CDT Pulse 68 07/01/2023 9:27 AM CDT Temperature 36.1 ??C (97 ??F) 03/05/2023 8:52 AM CDT Respiratory Rate 14 07/01/2023 9:27 AM CDT Oxygen Saturation 94% 03/05/2023 8:52 AM CDT Inhaled Oxygen Concentration - - Weight 87.5 kg (193 lb) 04/23/2023 10:13 AM CDT Height 175.3 cm (5' 9) 03/04/2023 10:33 PM CDT Body Mass Index 28.5 03/04/2023 10:33 PM CDT Plan of Treatment Upcoming Encounters Date Type Department Care Team (Late st Contact Info) Description 02/14/2024 2:30 PM CDT Office Visit [facility] [address] [place] [address] BrendonNelson Herlinda, [facility] [address] [place] [address] 02/28/2024 2:30 PM CDT Office Visit [facility] [address] [place] [address] BrendonNelson Herlinda, AuD [address] [place] [address] Health Maintenance Due Date Last Done Comments Tdap 1956 Depression screening for age 12+ 1957 BMI (ht and wt on same day) for age 18+ 12/24/1963 Hepatitis C screening for ag e 18-79 12/24/1963 Tetanus booster 1965 Zoster (shingles) series for age 50+ (1 of 2) 12/24/1995 Medicare Wellness for age 65+ 2010 Pneumococcal series for age 65+ (1 of 1 - PCV) 2010 Influenza for age 65+ 05/14/2024 COVID-19 vaccine series Completed 07/15/20, 06/30/2022, 01/23/2022, Additional history exists Advance Directives * Full Code (Latest Code Status on File) Date Activated Date Inactivated Comments 03/04/2023 10:18 PM 03/05/2023 2:15 PM Question Answer Comments Code Status Discussion: Reviewed Preferences Care Teams Poultry Boner Relationship Specialty Start Date End Date Sarah Fitzgerald MD [address] [place] [address] PCP - General Internal Medicine 03/05/23
[2024-01-29 11:00] LABS: Basophils Absolute Auto 0.05 K/uL (0.00-0.30); Basophils Percent Auto 0.6 % (0.0-3.0); Eosinophils Absolute Auto 0.12 K/uL (0.00-0.50); Eosinophils Percent Auto 1.5 % (0.0-7.0); Hematocrit 46.8 % (37.0-53.0); Hemoglobin* 15.3 gm/dL (13.5-17.5); Immature Granulocytes Abs Auto 0.02 K/uL (0.00-0.30); Immature Granulocytes Pct Auto 0.2 %; Lymphocytes Absolute Auto 2.97 K/uL (0.90-2.90); Lymphocytes Percent Auto 36.5 % (20-44); Mean Corpuscular HGB Conc 33 gm/dL (32-36); Mean Corpuscular Hemoglobin 32 pg (26-34); Mean Corpuscular Volume 97 fL (80-100); Monocytes Percent Auto 9.1 % (0.0-11.0); Neutrophils Absolute Auto 4.24 K/uL (1.7-7.0); Neutrophils Percent Auto 52.1 % (42.0-72.0); Platelet Count* 133 K/uL (140-440); RDW Coefficient of Variation % 12.9 % (11.5-15.5); Red Blood Count 4.84 m/uL (4.30-5.90); White Blood Count* 8.14 K/uL (4.50-11.00)
[2024-01-29 11:12] LABS: Chloride* 106 mmol/L (96-114); Potassium* 4.1 mmol/L (3.6-5.1); Sodium* 138 mmol/L (135-149)
[2024-01-29 11:15] LABS: Anion Gap 7 mEq/L (7-15); Blood Urea Nitrogen* 20 mg/dL (7-30); Carbon Dioxide* 25 mmol/L (20-32); Creatinine* 1.2 mg/dL (0.5-1.5); Est. Creatinine Clearance* 50.73; Estimated Glomerular Filt Rate 62 ml/min
[2024-01-29 11:16] LABS: Calcium* 8.8 mg/dL (8.4-10.6); Glucose* 113 mg/dL (60-115)
[2024-01-29 11:18] LABS: Slide Review Reflex No
== END 2024-01-29 12:00 | disposition home or self-care (01) ==
PROVIDERS: Emergency Provider Emergency Medicine Emergency Medical Services; PCP Internal Medicine
DX: R00.1 Bradycardia, unspecified (principal); R55 Syncope and collapse
CPT/HCPCS: 36415; 80048; 84484; 85025; 93005; 99284

== ENCOUNTER 2024-07-17 08:28 | Outpatient (CLI) | payer MEDICARE, BC, SELFPAY ==
--- OUTSIDE RECORDS SUMMARY | 2024-07-20 07:07 | XMS_ITS | Clinical Summary ---
Author Organization [facility] Address [place], [place] [address] Care Team Providers Care Wheelabrator Operator Name Role Phone Sarah Fitzgerald MD Primary Care Provider [phone] Allergies Active Allergy Reactions Criticality Noted Date [...] once daily if needed for Constipation. 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 Mostly with concerns of executive functioning. Will follow up in 1 year. 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 Recommended avoidance of noxious stimuli which have included alcohol, ear washing, and pain. Bradyarrhythmia 03/04/2023 03/05/2023 Word finding difficulty 12/31/2020 062 10/2022 Overview (03/04/2023): Episodic x 2 for 2 hours Encounters Date Type Department Care Team Description 06/19/2024 11:00 AM CDT Office Visit [facility] [address] [place] [address] Herlinda Max AuD Hearing Aid (BLANCO check) 06/19/2024 Travel 05/22/2024 12:30 PM CDT Office Visit [facility] [address] [place] [address] Herlinda Max AuD Hearing Aid (BLANCO check) 05/22/2024 Travel 05/01/2024 3:00 PM CDT Office Visit [facility] [address] [place] [address] Herlinda Max AuD Hearing Aid (BLANCO check) 05/01/2024 Travel 04/26/2024 10:00 AM CDT Ancillary Procedure [facility] [address] [address] 04/26/2024 Travel 04/24/2024 Telephone [facility] [address] [place] [address] Herlinda Max, Norah Hearing Aid ([employer] Right [employer] ) from Last 3 Months Social History Tobacco [...] Sign Reading Time Taken Comments Blood Pressure 159/97 03/23/2024 10:18 AM CDT Pulse 58 03/23/2024 10:13 AM CDT Temperature 36.1 ??C (97 ??F) 03/05/2023 8:52 AM CDT Respiratory Rate 14 07/01/2023 9:27 AM CDT Oxygen Saturation 95% 03/23/2024 10:13 AM CDT Inhaled Oxygen Concentration - - Weight 88.7 kg (195 lb 9.6 oz) 03/23/2024 10:13 AM CDT Height 175.3 cm (5' 9) 03/04/2023 10:33 PM CDT Body Mass Index 28.89 03/04/2023 10:33 PM CDT Plan of Treatment Upcoming Encounters Date Type Department Care Team (Late st Contact Info) Description 09/18/2024 10:00 AM CONFIGURATION MANAGEMENT MANAGER Office Visit [facility] [address] [place] [address] Herlinda Max, Norah [address] [place] [address] Health Maintenance Due Date Last Done Comments [...] 65+ (1 of 1 - PCV) 2010 RSV vaccine for adults or (1 - 1-dose 75+ series) 2020 COVID-19 vaccine series ( season) 2024 07/15/2023, 06/30/2022, 01/23/2022, Additional history exists Influenza for age 65+ 05/14/2024 Procedures Procedure Name Priority Date/Time Associated Diagnosis Comments ECHO TTE COMPLETE WO CONTRAST Routine 04/26/2024 10:53 AM CDT Cerebrovascular accident (CVA), unspecified mechanism (HC) Hyperlipidemia, unspecified hyperlipidemia type PFO (patent foramen ovale) PVC (premature ventricular contraction) from Last 3 Months Results * ECHO TTE COMPLETE WO CONTRAST (04/26/2024 10:53 AM CDT) AORTIC VALVE MEAN PG 5 mmHg EJECTION FRACTION 65 % PEAK TR VELOCITY 2.2 m/s LVEDD 4.8 cm EJECTION FRACTION 65 - 70% Anatomical Region Laterality Modality Ultrasound 04/26/2024 10:0 4 AM CDT Narrative 04/26/2024 11:07 AM CDT ECHOCARDIOGRAM ANDERSON BROWN ? Accession#: ?? [id number] : ?1945 78 years Study Date: ?? 04/26/2024 10:04:33 AM Gender: M ?BP: ? 159/97 mmHg Height: 175.00 cm ?BSA: ?2.05 m? ? ? Weight: 89.00 kg ? Tech: ? MSR ? Referring MD: CARYN PIKE Site: ? [facility] Reading Location: Mobile OP Patient Location: Outpatient. Procedure: 2D, Color Doppler and Spectral Doppler. Indication for study: Cerebrovascular accident (CVA), unspecified mechanism (HC); Hyperlipidemia, unspecified hyperlipidemia type; PFO (patent foramen ovale); PVC (premature ventricular contraction) Cardiac Rhythm: Regular, with premature ventricular contractions and normal sinus.Study quality: Fair. Final Impressions: 1. Normal LV size, normal wall thickness, normal global systolic function with an estimated EF of 65 - 70%. 2. Right ventricular cavity size is normal, global systolic RV function is normal. 3. Normal diastolic function. 4. No significant valve disease detected. 5. S/p interatrial septal closure device. No residual shunt seen by color doppler. Comparison Compared to prior exam of 04/02/23, there has been no significant change. Chamber Sizes and Function Normal left ventricular size, normal wall thickness, normal global systolic function with an estimated EF of 65 - 70%. Left atrial size is normal. Left atrial pressure is normal. Right ventricular cavity size is normal, global systolic RV function is normal. The right atrium is normal. The pulmonary artery is not well visualized. The sinus of Valsalva is normal sized. The ascending aorta is normal sized. Valves, RV Pressures and Diastolic Function The aortic valve is trileaflet, no stenosis and no regurgitation. The mitral valve is normal in structure, trace mitral regurgitation. Normal diastolic function. The tricuspid valve is normal in structure. Tricuspid regurgitation is trace regurgitation. The tricuspid regurgitant velocity is 2.2 m/s, the estimated right ventricular systolic pressure is 19 mmHg plus right atrial pressure. There is normal estimated pulmonary pressure by tricuspid regurgitation velocity and right atrial pressure. The pulmonic valve is not well visualized. Trace pulmonary regurgitation. Masses, Effusion, Shunts There is no pericardial effusion. The inferior vena cava is normal sized, respiratory size variation greater than 50%. No left to right shunting was detected by limited color flow Doppler interrogation of the interatrial septum. MEASUREMENTS AND CALCULATIONS 2-D Measurements and LV Function: LVID (d) 4.8 cm LVOT diameter 2.1 cm IVS (d) ??1.1 cm HR ?61 bpm LVPW (d) 1.1 cm LA Vol index ??29 ml/m2 Ao Sinus 3.6 cm RV Max 4C (d) 3.2 cm Asc Ao ?? 3.8 cm Diastology: Mitral ?Tissue Doppler E Peak 0.6 m/s ??e', Septum ? 0.05 m/s A Peak 0.8 m/s ??e', Lateral ?0.10 m/s E/A ?0.7 ?E/e' Average ?? 7.75 DT ? 186 msec Aortic Valve: Vmax ? 1.4 m/s ??SHELBY (V) ?? 3.07 cm? ? ? VTI ?0.32 m ?? SHELBY (I) ?? 2.95 cm? ? ? LVOT V max 1.2 m/s ??Max PG ?8 mmHg LVOT VTI ?? 0.27 m ?? Mean PG ?? 5 mmHg SV ? 94 ml ?Dim Index 0.84 SV index ?? 46 ml/m? ? ? CO ?5.7 l/min ?CI ?2.8 l/min/m? ? ? Mitral Valve: MVA ?4.1 cm? ? ? MV P 1/2 54 msec Tricuspid Valve and estimated PA pressures: TR Vmax 2.2 m/s TAPSE 2.1 cm TR maxG 19 mmHg . This study was interpreted by an [facility] accredited facility. ??Final ?? Procedure Note Larry Carney MD - 04/26/2024 ECHOCARDIOGRAM ANDERSON BROWN : 1945 78 years Study Date: 04/26/2024 10:04:33 AM Gender: M BP: 159/97 mmHg Height: 175.00 cm BSA: 2.05 m? ? ? Weight: 89.00 kg Tech: ELSA Referring MD: CARYN PIKE Site: [facility] Reading Location: Mobile OP Patient Location: Outpatient. Procedure: 2D, Color Doppler and Spectral Doppler. Indication for study: Cerebrovascular accident (CVA), unspecifiedmechanism (HC); Hyperlipidemia, unspecified hyperlipidemia type; PFO(patent foramen ovale); PVC (premature ventricular contraction) Cardiac Rhythm: Regular, with premature ventricular contractions andnormal sinus.Study quality: Fair. Final Impressions: 1. Normal LV size, normal wall thickness, normal global systolic functionwith an estimated EF of 65 - 70%. 2. Right ventricular cavity size is normal, global systolic RV functionis normal. 3. Normal diastolic function. 4. No significant valve disease detected. 5. S/p interatrial septal closure device. No residual shunt seen by colordoppler. Comparison Compared to prior exam of 04/02/23, there has been no significant change. Chamber Sizes and Function Normal left ventricular size, normal wall thickness, normal globalsystolic function with an estimated EF of 65 - 70%. Left atrial size isnormal. Left atrial pressure is normal. Right ventricular cavity size isnormal, global systolic RV function is normal. The right atrium is normal.The pulmonary artery is not well visualized. The sinus of Valsalva isnormal sized. The ascending aorta is normal sized. Valves, RV Pressures and Diastolic Function The aortic valve is trileaflet, no stenosis and no regurgitation. Themitral valve is normal in structure, trace mitral regurgitation. Normaldiastolic function. The tricuspid valve is normal in structure. Tricuspidregurgitation is trace regurgitation. The tricuspid regurgitant velocityis 2.2 m/s, the estimated right ventricular systolic pressure is 19 mmHgplus right atrial pressure. There is normal estimated pulmonary pressureby tricuspid regurgitation velocity and right atrial pressure. Thepulmonic valve is not well visualized. Trace pulmonary regurgitation. Masses, Effusion, Shunts There is no pericardial effusion. The inferior vena cava is normal sized,respiratory size variation greater than 50%. No left to right shunting wasdetected by limited color flow Doppler interrogation of the interatrialseptum. MEASUREMENTS AND CALCULATIONS 2-D Measurements and LV Function: LVID (d) 4.8 cm LVOT diameter 2.1 cm IVS (d) 1.1 cm HR 61 bpm LVPW (d) 1.1 cm LA Vol index 29 ml/m2 Ao Sinus 3.6 cm RV Max 4C (d) 3.2 cm Asc Ao 3.8 cm Diastology: Mitral Tissue Doppler E Peak 0.6 m/s e', Septum 0.05 m/s A Peak 0.8 m/s e', Lateral 0.10 m/s E/A 0.7 E/e' Average 7.75 DT 186 msec Aortic Valve: Vmax 1.4 m/s SHELBY (V) 3.07 cm? ? ? VTI 0.32 m SHELBY (I) 2.95 cm? ? ? LVOT V max 1.2 m/s Max PG 8 mmHg LVOT VTI 0.27 m Mean PG 5 mmHg SV 94 ml Dim Index 0.84 SV index 46 ml/m? ? ? CO 5.7 l/min CI 2.8 l/min/m? ? ? Mitral Valve: MVA 4.1 cm? ? ? MV P 1/2 54 msec Tricuspid Valve and estimated PA pressures: TR Vmax 2.2 m/s TAPSE 2.1 cm TR maxG 19 mmHg . This study was interpreted by an [facility] accredited facility. Final Caryn Pike MD ECHO ORD from Last 3 Months Advance Directives * Full Code (Latest Code Status on File) Date Activated Date Inactivated Comments 03/04/2023 10:18 PM 03/05/2023 2:15 PM Question Answer Comments Code Status Discussion: Reviewed Preferences Care Teams Wheelabrator Operator Relationship Specialty Start Date End Date Sarah Fitzgerald MD [address] [place] [address] PCP - General Internal Medicine 03/05/23
== END 2024-07-17 08:29 | disposition home or self-care (01) ==
LOC: NFLDREF 07-20 07:06
PROVIDERS: PCP Internal Medicine; Referring Provider Internal Medicine; Visit Provider Internal Medicine
DX: Z00.00 Encounter for general adult medical examination without abnormal findings (principal); R73.03 Prediabetes; E78.5 Hyperlipidemia, unspecified; Z86.79 Personal history of other diseases of the circulatory system
CPT/HCPCS: 80048; 80061

== ENCOUNTER 2025-07-18 08:35 | Outpatient (CLI) | payer MEDICARE, BC, SELFPAY | END 2025-07-18 08:36 | disposition home or self-care (01) | LOC: NFLDREF 07-23 01:41 | PROVIDERS: PCP Internal Medicine; Referring Provider Internal Medicine; Visit Provider Internal Medicine | DX: E78.5 Hyperlipidemia, unspecified (principal); R73.03 Prediabetes | CPT/HCPCS: 80048; 80061 ==